=== PATIENT | male | born 1995 | race Caucasian/White ===

== ENCOUNTER 2016-05-09 12:59 | Emergency (ER) | payer OTHER ==
[2016-05-09 13:48] VITALS: BP 119/70
--- NOTE | 2016-05-09 14:42 | UC ---
Respiratory Complaint HPI - HPI Summary HPI Summary: 20 yo male with mild myalgias/low grade temp/mild sore throat/anorexia/minimal cough and slight nasal congestion x 3 days c/o cotton mouth and trouble sleeping fatigue no CP no SOB no n/v/d has had mono - History of Current Complaint Chief Complaint: UCRespiratory Stated Complaint: HEADACHE,COUGH,FEVER,CHILLS Time Seen by Provider: 05/09/16 14:33 Hx Obtained From: Patient Onset/Duration: Gradual Onset, Lasting Days Timing: Constant Severity Initially: Mild Severity Currently: Mild Pain Intensity: 3 Pain Scale Used: 0-10 Numeric Character: Cough: Nonproductive Aggravating Factors: Nothing Alleviating Factors: Nothing Associated Signs And Symptoms: Positive: Fever - emir, Chills, Nasal Congestion - mild. Negative: Hoarseness, Sinus Discomfort - Allergies/Home Medications Allergies/Adverse Reactions: Allergies Allergy/AdvReac Type Severity Reaction Status Date / Time No Known Allergies Allergy Verified 05/09/16 13:44 Home Medications: Home Medications Ibuprofen TAB* [Advil TAB*] 400 mg PO Q6H PRN 05/09/16 [History Confirmed ] PMH/Surg Hx/FS Hx/Imm Hx Previously Healthy: Yes - Surgical History Surgical History: None - Family History Known Family History: Positive: Hypertension - Social History Alcohol Use: Weekly Substance Use Type: None Smoking Status (MU): Never Smoked Tobacco - Immunization History Most Recent Influenza Vaccination: Not the Season Review of Systems Constitutional: Fever - emir, Chills, Fatigue Skin: Negative Eyes: Negative ENT: Sore Throat Respiratory: Cough Cardiovascular: Negative Gastrointestinal: Negative Genitourinary: Negative Motor: Negative Neurovascular: Negative Musculoskeletal: Myalgia - mild Neurological: Negative Psychological: Negative All Other Systems Reviewed And Are Negative: Yes Physical Exam Triage Information Reviewed: Yes Appearance: Well-Appearing, No Pain Distress, Well-Nourished Vital Signs: Initial Vital Signs Temp 98.2 F 05/09/16 13:42 Pulse 88 05/09/16 13:42 Resp 16 05/09/16 13:42 BP 119/70 05/09/16 13:42 Pulse Ox 100 05/09/16 13:42 Vital Signs Reviewed: Yes Eyes: Positive: Conjunctiva Clear ENT: Positive: Hearing grossly normal, Pharyngeal erythema, TMs normal, Tonsillar swelling, Tonsillar exudate. Negative: Nasal congestion, Nasal drainage, Trismus, Muffled/hoarse voice Dental: Negative: Dental Fracture @, Abscess @ Neck: Positive: Nontender, Enlarged Nodes @ - tender enlarged ant cerv nodes Respiratory: Positive: Lungs clear, Normal breath sounds, No respiratory distress, No accessory muscle use Cardiovascular: Positive: RRR, No Murmur, Pulses Normal. Negative: Tachycardia , Bradycardia Abdomen Description: Positive: Nontender, No Organomegaly, Soft. Negative: CVA Tenderness (R), CVA Tenderness (L), Distended Bowel Sounds: Positive: Present Musculoskeletal: Positive: ROM Intact, No Edema Neurological: Positive: Alert Psychological Exam: Normal Skin Exam: Normal UC Diagnostic Evaluation - Laboratory O2 Sat by Pulse Oximetry: 100 Respiratory Course/Dx - Differential Dx/Diagnosis Provider Diagnoses: acute exudative tonsillitis Discharge - Discharge Plan Condition: Stable Disposition: HOME Prescriptions: Cephalexin CAP* [Keflex CAP*] 500 mg PO BID #[id number] Patient Education Materials: Tonsillitis (ED) Referrals: Non Staff,Doctor [Primary Care Provider] - Additional Instructions: rest fluids ibuprofen recheck in 3-4 days if not better
== END 2016-05-09 14:46 | disposition home or self-care (01) ==
LOC: UCCORT 12:59
DX: J03.90 Acute tonsillitis, unspecified (principal)
CPT/HCPCS: 99212; G0463